=== PATIENT | male | born 1990 | race Caucasian/White ===

== ENCOUNTER → 2016-12-04 | Outpatient (CLI) | payer OTHER | LOC: FIMAGING 18:43 | PROVIDERS: ATTEND Internal Medicine | DX: R42 Dizziness and giddiness (principal) ==

== ENCOUNTER 2017-03-15 03:38 | Emergency (ER) | payer OTHER ==
[2017-03-15 03:44] VITALS: BP 153/81; TEMP 98.1
[2017-03-15] MEDS ORDERED: PROPARACAINE 0.5% 15 ML OPHT DROP LEFTEYE ONE (03:54)
[2017-03-15] MEDS ORDERED: FLUORESCEIN SODIUM 1 MG STRIP OP ONE (03:54)
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
[2017-03-15] MEDS ORDERED: ERYTHROMYCIN 0.5% 1 GM OPHT.OINT LEFTEYE SCH (04:15)
[2017-03-15 04:47] VITALS: PULSE 94; RESP 14; O2SAT 94
== END 2017-03-15 04:46 | disposition home or self-care (01) ==
DX: S05.02XA Injury of conjunctiva and corneal abrasion without foreign body, left eye, initial encounter (principal); F17.210 Nicotine dependence, cigarettes, uncomplicated; W22.8XXA Striking against or struck by other objects, initial encounter; Y99.8 Other external cause status; Y93.89 Activity, other specified

== ENCOUNTER 2017-08-16 19:05 | Emergency (ER) | payer OTHER ==
[2017-08-16 19:12] VITALS: BP 131/87; TEMP 97.9; O2SAT 92
--- NOTE | 2017-08-16 19:53 | EDPHY ---
HPI/HX/ROS/PE/MDM Narrative: CHIEF COMPLAINT: Tailbone pain HPI: The patient is a 27-year-old male with no significant past medical history. Last night, the patient was walking down his steps while wearing socks , when he slipped and landed hard on his tailbone on the step. He complains of continued pain to his tailbone. He denies numbness, weakness or difficulty walking. He denies other injury. REVIEW OF SYSTEMS: Aside from elements discussed in the HPI, a comprehensive 10-point review of systems was reviewed and is negative. PMH: None significant. SOCIAL HISTORY: Denies drug abuse. PHYSICAL EXAM: Exam unfortunately somewhat limited as patient is in a hallway bed. General:Patient is alert, in no acute distress. Back: Normal to inspection. Tenderness near tailbone area. Extremities: Normal appearance. Full range of motion. Neuro: Oriented x3. Normal motor function. Normal sensory function. ED Course: XR: positive for mild compression fx of coccyx, no malalignment. MDM: This patient presents with tailbone pain and is found to have mild ND coccyx fracture. No pain to lumbar spine or pelvis. Patient declines pain medications. Strict return precautions discussed with patient. - Data Points Imaging Results: Imaging Impressions Sacrum and Coccyx X-Ray 08/16/17 19:51 Impression: Query mild ventral compression deformity of the terminal coccygeal segment. General Time Seen by Provider: 08/16/17 19:37 Initial Vital Signs: Initial Vital Signs Temperature (C) 36.6 C 08/16/17 19:09 Heart Rate 116 H 08/16/17 19:09 Respiratory Rate 14 08/16/17 19:09 Blood Pressure 131/87 H 08/16/17 19:09 O2 Sat (%) 92 08/16/17 19:09 O2 Delivery Mode Room Air Allergies/Adverse Reactions: No Known Allergies Allergy (Unverified 03/15/17 03:43) Home Medications: Medication Instructions Recorded NK [No Known Home Meds] 03/15/17 Departure - Departure Disposition: Home, Routine, Self-Care Clinical Impression: Coccygeal fracture Condition: Good Instructions: Coccyx Injury (ED) Additional Instructions: Use ibuprofen and a donut pillow as directed for pain. Return to the ED for continued pain or failure to improve, numbness, tingling, blood in urine, pain with defecation or other concerns. Referrals: Hayde Arredondo MD [Primary Care Provider] - As per Instructions
[2017-08-16 20:50] VITALS: PULSE 68; RESP 18
== END 2017-08-16 20:50 | disposition home or self-care (01) ==
DX: S32.2XXA Fracture of coccyx, initial encounter for closed fracture (principal); W01.0XXA Fall on same level from slipping, tripping and stumbling without subsequent striking against object, initial encounter; Y93.01 Activity, walking, marching and hiking